=== PATIENT | female | born 1955 | race Caucasian/White ===

== ENCOUNTER 2018-06-15 12:22 | Day surgery (SDC) | payer BC ==
[~2018-06-15] VITALS: Ht 165.1 cm; Wt 93.9 kg
[~2018-06-15 12:22] MED LIST: ADVAIR 250-501 EACH INH; CIPRO500 MG PO; DULOXETINE HCL20 MG PO; FELODIPINE ER5 MG PO; GABAPENTIN300 MG PO; LEVAQUIN500 MG PO; LEVOTHYROXINE100 MCG PO; LEVOTHYROXINE112 MCG PO; LIOTHYRONINE SO5 MCG PO; LISINOPRIL-HCT1 EACH PO; LISINOPRIL20 MG PO; LOSARTAN-HCTZ1 EAC1 PO; METFORMIN HCL500 MG PO; NORCO 5-325 TA1 EACH PO; PERCOCET 7.5-31 EACH PO; SUDOGEST30 MG PO; SYNTHROID100 MCG PO; ZYRTEC10 MG PO
--- NOTE | 2018-06-15 13:44 | NUR ---
06/15/18 1344 Sheila Parker 1338 PT ARRIVED IN PACU SLEEPY WITH NO C/O'S. ABD SOFT AND PASSING FLATUS. REPOSITIONED TO BACK FOR PT COMFORT.
--- NOTE | 2018-06-16 15:31 | OR ---
[facility] [address] [place], [place] [address] Signed DATE OF OPERATION: 06/15/2018 SURGEON: Fantasma Bernardo MD PREOPERATIVE DIAGNOSIS: History of tubular adenoma at 20 cm. POSTOPERATIVE DIAGNOSIS: Small polyp at 20 cm, possible residual polyp or new polyp. PROCEDURE: Total colonoscopy to cecum with cold morcellation polypectomy x1. ANESTHESIA: Intravenous sedation, fentanyl 100 mcg and Versed 5 mg. INDICATION: This 63-year-old white woman is a patient of Dr. Perea and underwent colonoscopy by [facility] in 2015, at which time she was found to have a tubular adenoma at 20 cm and hyperplastic polyp at 30 cm. She is symptom free having no bleeding, diarrhea or constipation. Has no family history of colon cancer. She is admitted at this time to undergo colonoscopy for surveillance. She understands the risks of bleeding, infection, and perforation. FINDINGS: The prep was excellent. Complete colonoscopy was undertaken of the cecum. There was a small polyp at 20 cm, which was excised. It did not look worrisome in any way and is quite small overall. DESCRIPTION OF PROCEDURE: The patient was brought to the endoscopy suite and placed in lateral decubitus position, given intravenous sedation to the point of slurred speech and nystagmus. Digital rectal examination was normal. Olympus video colonoscope was passed in the rectum and manipulated throughout the colon ultimately intubating the cecum itself. The ileocecal valve and appendiceal orifice were normal. The scope was withdrawn from that point. Examination throughout showed no sign of abnormality until approximately 20 cm from the anal verge where a small polyp was noted. This may be hyperplastic. The possibility of a residual adenoma at that site is considered also. The lesion was excised with cold morcellation technique without problem. Further withdrawal of the scope showed no other abnormality. Retroflexed view was normal. Scope was removed. The patient was taken to Electronically Signed By: FANTASMA BERNARDO MD 06/16/18 1531 PATIENT NAME: BHARAT CALDWELL OPERATIVE REPORT DATE OF : 53 REPORT #: [id number] PHYSICIAN: FANTASMA BERNARDO MD PCP: MIGUEL A PEREA MD REPORT IS CONFIDENTIAL AND NOT TO BE RELEASED WITHOUT AUTHORIZATION [facility] [address] [place] [place] [address] Signed the recovery room in good condition. CONCLUDING DIAGNOSIS: Small polyp at 20 cm. PLAN: We will check pathology report. If an adenoma is noted, repeat colonoscopy in 5 years. If hyperplastic, recommend 10 years followup. She will return to the ongoing care of Dr. Perea otherwise. MD LD Wade/MODL /[id number] cc: Miguel A Perea MD Copies: MIGUEL A PEREA MD ~ Electronically Signed By: FANTASMA BERNARDO MD 06/16/18 1531 PATIENT NAME: BHARAT CALDWELL OPERATIVE REPORT DATE OF : 53 REPORT #: [id number] PHYSICIAN: FANTASMA BERNARDO MD PCP: MIGUEL A PEREA MD REPORT IS CONFIDENTIAL AND NOT TO BE RELEASED WITHOUT AUTHORIZATION
== END 2018-06-15 14:15 | disposition home or self-care (01) ==
LOC: DS 12:22 → OPS 12:22 → DS 13:00 → OPS 14:15
PROVIDERS: Surgery
PROC: 0DBE8ZZ Excision of Large Intestine, Via Natural or Artificial Opening Endoscopic (ICD-10-PCS; principal; 2018-06-15 13:00)
DX: Z12.11 Encounter for screening for malignant neoplasm of colon (principal); K63.5 Polyp of colon; I10 Essential (primary) hypertension; K21.9 Gastro-esophageal reflux disease without esophagitis; E03.9 Hypothyroidism, unspecified; G89.29 Other chronic pain; Z88.0 Allergy status to penicillin; Z79.899 Other long term (current) drug therapy; Z86.010 Personal history of colon polyps; Z87.01 Personal history of pneumonia (recurrent)
CPT/HCPCS: 99153; G0500; J2250; J3010; J7120

== ENCOUNTER 2018-06-27 15:42 | Emergency (ER) | payer BC ==
[~2018-06-27] VITALS: Ht 165.1 cm; Wt 93.9 kg
[2018-06-27] MEDS ORDERED: NORCO 5-325 TA1 EACH PO (18:10)
== END 2018-06-27 18:34 | disposition home or self-care (01) ==
LOC: ED 15:42
DX: M53.3 Sacrococcygeal disorders, not elsewhere classified (principal); Z88.0 Allergy status to penicillin; Z79.899 Other long term (current) drug therapy; Z79.84 Long term (current) use of oral hypoglycemic drugs
CPT/HCPCS: 96372; 99283-25; J1885; J2550

== ENCOUNTER 2024-02-23 11:31 | Inpatient (IN) | payer OTHER, MEDICARE ==
[~2024-02-23] VITALS: Ht 167.6 cm; Wt 104.3 kg
[2024-02-23] MEDS ORDERED: SODIUM CHLORIDE 0.9% 1,000 ML IV PRN (12:30)
[2024-02-23 12:52] LABS: BILIRUBIN, URINE NEGATIVE (negative); BLOOD/HGB, URINE NEGATIVE (Negative); KETONE, URINE NEGATIVE (Negative); LEUK ESTERASE, URINE NEGATIVE (negative); NITRITE, URINE NEGATIVE (negative)
[2024-02-23 12:53] LABS: BASOPHILS 0.7 % (0-2); EOSINOPHILS 1.2 % (0-6); HEMOGLOBIN 14.8 g/dL (12.0-18.0); LYMPHOCYTES 23.5 % (24-44); MCH 29.8 (27-36); MCHC 34.5 g/dl (30-36); MCV 86.4 fl (81-99); MONOCYTES 8.2 % (0-12); NEUTROPHILS 66.4 % (39-80); PLATELET COUNT 408 K/uL (140-440); RBC 4.97 M/ul (4.3-5.7); RDW 13.4 (10.5-15.0)
[2024-02-23 13:03] LABS: INR 0.93 (0.80-1.30); PROTIME 12.1 Sec (11.2-14.2)
[2024-02-23 13:11] LABS: BACTERIA, URINE NONE SEEN /hpf (negative); CASTS, URINE NONE SEEN \\lpf; COLLECTION TYPE, URINE CLEAN CATCH; CRYSTALS, URINE NONE SEEN (0-1+); EPITHELIAL CELLS, URINE 0 /lpf (0-1+); RED BLOOD CELLS, URINE 0-1 /hpf (0-5); WHITE BLOOD CELLS, URINE 0-1 /HPF (0-5)
[2024-02-23 13:12] LABS: REFLEX CULTURE, URINE No (No)
[2024-02-23 13:15] LABS: ALBUMIN 4.3 g/dL (3.4-5.0); ALBUMIN/GLOBULIN RATIO 1.13 (1.1-2.4); ANION GAP 15.4 (7-21); BILIRUBIN, TOTAL 0.7 ng/dL (0.2-1.0); BUN/CREATININE RATIO 14.28 (6.0-28.6); CALCIUM 9.9 mg/dL (8.5-10.1); CREATININE, SERUM 0.84 mg/dL (0.55-1.02); POTASSIUM 4.4 mmol/L (3.5-5.1); PROTEIN, TOTAL 8.1 g/dL (6.4-8.2)
[2024-02-23 13:29] LABS: INFLUENZA B NAA NEGATIVE (NEGATIVE); RESPIRATORY SYNCYTIAL VIR NAA NEGATIVE (NEGATIVE)
[2024-02-23] MEDS ORDERED: ondansetron HCL 4 MG/2 ML VIAL IV PRN (18:45)
[2024-02-23] MEDS ORDERED: DEXTROSE 5% - NACL 0.45% 1,000 ML IV SCH (18:45)
[2024-02-23 19:28] VITALS: BP 154/74
[2024-02-23 19:30] VITALS: BP 154/74
--- NOTE | 2024-02-23 19:30 | NUR ---
REPORT RECEIVED FROM JERAMIE PRIEST. pt ARRIVED FROM THE ER VIA STRETCHER. pt ABLE TO WALK TO THE BED. ASSESSMENT AND VITAL DIGNS DONE. pt DENIES ANY NEEDS AT THIS TIME. pt STATE SHE HAD CHRONIC NEUROPATHY IN HER FEET. NO NEW DEFICITS AT THIS TIME. CALL LIGHT WITHIN IN REACH. NO OTHER NEEDS AT THIS TIME. TELE #5 PLACED ON pt.
[2024-02-23] MEDS ORDERED: NORVASC10 MG PO (19:38)
[2024-02-23] MEDS ORDERED: COZAAR100 MG PO (19:40)
[2024-02-23] MEDS ORDERED: SPIRONOLACTONE25 MG PO (19:41)
--- NOTE | 2024-02-23 20:55 | NUR ---
CALL LIGHT ANSWERED. SBA. PATIENT WALKED TO THE BATHROOM. VOIDED 100ML YELLOW URINE. PATIENT APPEARS STEADY ON HER FEET. PATIENT IS BACK IN BED. PATIENT'S LEFT OVER FOOD IN A STYRO PLACED IN THE ZIPLOC WITH STICKER IS IN THE REFREGIRATOR. ICE WATER REFILLED. NO OTHER NEEDS AT THIS TIME.
[2024-02-23] MEDS ORDERED: APIXABAN 5 MG TAB PO SCH (21:00)
[2024-02-23] MEDS ORDERED: CLOPIDOGREL BISULFATE 75 MG TAB PO SCH (21:00)
[2024-02-23] MEDS ORDERED: ATORVASTATIN 40 MG TAB PO SCH (21:00)
[2024-02-23] MEDS ORDERED: ASPIRIN 81 MG CHEW PO SCH (21:00)
--- NOTE | 2024-02-23 21:54 | NUR ---
SCHEDULED MEDS PROVIDED. PT UP TO BR, SBA, BACK TO BED. TOLERATED WEEL WITH STEADY GAIT. PT STATES NO OTHER NEEDS AT THIS TIME. CALL LIGHT IN REACH.
--- NOTE | 2024-02-23 23:49 | NUR ---
PATIENT CALLED TO USE THE RESTROOM. SBA. PATIENT VOIDED 75ML YELLOW URINE. PATIENT IS BACK IN BED. NO OTHER NEEDS AT THIS TIME.
[2024-02-24 01:22] VITALS: BP 128/68
[2024-02-24 02:11] VITALS: BP 128/68
--- NOTE | 2024-02-24 02:18 | NUR ---
VINCENT, PER RN DIRECTIVE, TOLD PT THAT SHE CHOULD TAKE HERSELF TO THE BATHROOM. INTERNET SALES CONSULTANT DID SOME EDUCATION ON SAFETY AND ENCOURAGED PT TO CALL FOR HELP IF THE IV IS TANGLED OR HAD OTHER CONCERNS.
--- NOTE | 2024-02-24 04:20 | NUR ---
pt RESTING IN THE BED WITH EYES CLOSED. RR EVEN AND UNLABORED. CALL LIGHT WITHIN REACH.
[2024-02-24 05:11] VITALS: BP 132/77
[2024-02-24 05:13] VITALS: BP 132/77
[2024-02-24 05:35] LABS: BASOPHILS 0.6 % (0-2); EOSINOPHILS 3.2 % (0-6); HEMATOCRIT 39.8 % (35.0-50.0); HEMOGLOBIN 13.6 g/dL (12.0-18.0); LYMPHOCYTES 34.5 % (24-44); MCH 29.7 (27-36); MCHC 34.2 g/dl (30-36); MCV 86.7 fl (81-99); MONOCYTES 10.5 % (0-12); NEUTROPHILS 51.2 % (39-80); PLATELET COUNT 381 K/uL (140-440); RDW 13.2 (10.5-15.0)
[2024-02-24 05:45] LABS: BUN/CREATININE RATIO 10.84 (6.0-28.6); CALCIUM 9.2 mg/dL (8.5-10.1); CREATININE, SERUM 0.83 mg/dL (0.55-1.02)
--- NOTE | 2024-02-24 06:17 | NUR ---
pt RESTED THROUGH OUT THE NIGHT. NO NEW DEFICITS AND pt DENIES ANY ABNORMALITIES. ALERT AND ORIENTED X4. NO OTHER CONCERNS AT THIS TIME.
--- NOTE | 2024-02-24 07:20 | NUR ---
REPORT RECEIVED FROM ZAYDA CHRISTENSEN. PT OPENS EYES WHEN THIS RN ENTERS ROOM, CURRENTLY REPORTS NO NEEDS AT THIS TIME, CALL LIGHT IN REACH.
[2024-02-24] MEDS ORDERED: PREGABALIN25 MG PO (07:38)
--- NOTE | 2024-02-24 07:58 | NUR ---
INITIAL ASSESSMENT AND MEDICATIONS COMPLETE PER JUL. PT AWAKE AND PLEASANTLY CONVERSANT IN BED. PT REPORTS CHRONIC N/T IN BLE R/T PRIOR PODIATRY VISIT WITH INJECTIONS CAUSING NERVE INJURY. PT REPORTS NO NEW OR DIFFERING N/T OTHER THAN HER CHRONIC. DR BALDWIN IN TO ASSESS PT. PT REPORTS L SHOULDER PAIN, 09/11, HEAT PACK APPLIED, DECLINES PHARMALOGICAL INTERVENTION AT THIS TIME. PT AMBULATES WITH STEADY GAIT TO RESTROOM UNASSISTED, AMBULATES AND RETURNS TO BED UNASSISTED. NO OTHER NEEDS AT THIS TIME, CALL LIGHT IN REACH.
[2024-02-24] MEDS ORDERED: ACETAMINOPHEN 325 MG TAB PO PRN (08:00)
[2024-02-24] MEDS ORDERED: LIOTHYRONINE SODIUM 5 MCG TAB PO SCH (09:00)
[2024-02-24] MEDS ORDERED: LEVOTHYROXINE SODIUM 100 MCG TAB PO SCH (09:00)
--- NOTE | 2024-02-24 09:00 | NUR ---
Spoke with Katherine and her daughter. Pt states she lives in a house with 3 steps. She does not have any concerns for getting in or out of her home. She denies any deficits on r or L side today. Pt uses a CPAP at home but 0 other DME. 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 Plans to dc to home when cleared medically. Daughter was concerned pt may need a walker, but pt again stating she does not have weakness. Let them know she will be evaluated by PT and we will go with their recommendations.
[2024-02-24 09:02] VITALS: BP 143/79
--- NOTE | 2024-02-24 09:04 | NUR ---
IN TO ROUND ON PT. PT REPORTS HEAT PACK TO L SHOULDER HELPFUL BUT SHE WOULD LIKE TO TRY SOME MEDICATION NOW. PRN PAIN MEDICATION ADMINISTERED PER ORDER, FRESH HEAT PACK PROVIDED. PTs DAUGHTER ARRIVES, IMMEDIATELY FOLLOWED BY IMAGING TO PERFORM PT ECHO. NO OTHER NEEDS AT THIS TIME, CALL LIGHT IN REACH.
--- NOTE | 2024-02-24 09:24 | NUR ---
UR CLINICAL REVIEW: [facility] [place] [place] FOR ISCHEMIC STROKE GUIDELINE [facility] 02/23/24 @ 1833 ORDER MATCHES REG AUTH PENDING, WILL SEND CLINICALS [facility]IA [employer] TODAY. PLAN TO DC TO HOME WHEN STABLE. 02/26/24
--- NOTE | 2024-02-24 09:42 | NUR ---
MED REC COMPLETE
--- NOTE | 2024-02-24 09:54 | NUR ---
TONNAGE COMPILATION CLERK CHARTED PATIENTS VITALS AND I&O'S. PATIENT IN BED AT THIS TIME. CALL LIGHT WITHIN REACH, NO FURTHER NEEDS AT THIS TIME.
--- NOTE | 2024-02-24 10:24 | NUR ---
VISITED DURING SPIRITUAL CARE ROUNDS. PT SUPPORTED BY DAUGHTER IN ROOM. BOTH PT AND DAUGTHER EXPRESSED HOPE, CONFIDENCE IN RECOVERY. HEALTH CONCIERGE PROVIDED SUPPORTED PRESENCE, HOSPITALITY, PRAYER, FACILITATED INTERACTION WITH THERAPY ANIMAL. PT AND DAUGHTER EXPRESSED GRATITUDE.
[2024-02-24] MEDS ORDERED: PHARMACY RENAL DOSE ADJUSTMENT 1 DOSE MISC PO SCH (12:00)
--- NOTE | 2024-02-24 12:02 | NUR ---
IN TO ROUND ON PT, PT RESTING ON L SIDE IN BED, EYES CLOSED, RR EVEN AND UNLABORED. CALL LIGHT IN REACH.
--- NOTE | 2024-02-24 13:22 | NUR ---
Spoke with Dr. Saldivar. He plans on pt discharging today. She would like to use PT at [facility] as she is already seeing them for her shoulder. I called and spoke with the PT department. They request I send orders and chart to their PT department with referral for reevaluation as pt is scheduled for her shoulder tomorrow. Dr. Saldivar updated.
[2024-02-24] MEDS ORDERED: ASPIRIN81 MG PO (13:32)
[2024-02-24] MEDS ORDERED: LIPITOR40 MG PO (13:33)
[2024-02-24] MEDS ORDERED: CLOPIDOGREL75 MG PO (13:33)
[2024-02-24 13:43] VITALS: BP 153/80
--- NOTE | 2024-02-24 14:40 | NUR ---
PT DISCHARGE EDUCATION DISCUSSED, QUESTIONS ANSWERED AND PT VERBALIZES UNDERSTANDING. IV REMOVED WNL, GAUZE AND COBAN APPLIED AND PT EDUCATED ON REMOVAL. PT ESCORTED TO FRONT OF HOSPITAL IN W/C, AMBULATES TO DAUGHTER'S CAR AND MUNIR HERSELF IN. DAUGHTER DRIVES AWAY.
--- NOTE | 2024-02-24 15:28 | NUR ---
Face sheet, H&P, Dc summary, Pt riri faxed to José Manuel at [facility] PT dept. They will see this pt tomorrow at her scheduled appt.
--- NOTE | 2024-02-24 20:28 | EKG ---
[facility] [address] [place], [place] [address] Signed Normal sinus rhythm Normal ECG No previous ECGs available Confirmed by Salome Saldivar MD ([id number]) on 02/24/2024 8:28:16 PM Electronically Signed By: SALOME SALDIVAR MD 02/24/242027 PATIENT NAME: BHARAT CALDWELL Electrocardiogram DATE OF : 53 PHYSICIAN: SALOME SALDIVAR MD REPORT #: [id number] REPORT IS CONFIDENTIAL AND NOT TO BE RELEASED WITHOUT AUTHORIZATION
== END 2024-02-24 14:40 | disposition home or self-care (01) | DRG 66 ==
LOC: ED 11:31 → MS 18:44
PROVIDERS: Emergency Medicine; ADMIT Student in an Organized Health Care Education/Training Program; ATTEND Student in an Organized Health Care Education/Training Program
DX: I63.9 Cerebral infarction, unspecified (principal); I10 Essential (primary) hypertension; R47.81 Slurred speech; R27.0 Ataxia, unspecified; E03.9 Hypothyroidism, unspecified; E11.9 Type 2 diabetes mellitus without complications; E78.5 Hyperlipidemia, unspecified; Z88.0 Allergy status to penicillin; Z79.890 Hormone replacement therapy; Z79.891 Long term (current) use of opiate analgesic; R29.700 NIHSS score 0
CPT/HCPCS: 36415; 70450; 70496; 70498; 70553; 71045; 73030; 80048; 80053; 81001; 83735; 83880; 84484; 85025; 85610; 85730; 87502; 93005; 93010; 93306; 97161; A9270; A9579; J7030; J7042; Q9967; U0002

== ENCOUNTER 2025-02-06 08:09 | Emergency (ER) | payer BC, MEDICARE, OTHER ==
[~2025-02-06] VITALS: Ht 167.6 cm; Wt 92.0 kg
--- OUTSIDE RECORDS SUMMARY | ~2025-02-06 | XMS | Continuity of Care Document ---
Demographics + + + | Address | [address] | | | [place] [address] | + + + | Preferred Language | Unknown | + + + | Marital Status | | + + + | Congregational Affiliation | Unknown | + + + | Race | White | + + + | Ethnic Group | Not or | + + + Author + + + | Author | [place] | + + + | Organization | [facility] | + + + | Address | [address] | | | [place] [address] | + + + | Phone | | + + + Care Team Providers + + + + | Care Physical Trainer Name | Role | Phone | + + + + Unavailable | Unavailable | + + + + Allergies No information. Encounters No information. Functional Status No information. Immunizations No information. Medications + + + + | date | description | facility | + + + + | (no date) | O[facility]CODONE | [facility] | | | HCL/ACETAMINOPHEN | [facility] | + + + + | (no date) | ESTRADIOL | [facility] | | | | [facility] | + + + + | (no date) | | [facility] | | | LISINOPRIL/HYDROCHLOROTHIAZ | [facility] | | | [facility] | | + + + + | (no date) | TEMAZEPAM | [facility] | | | | [facility] | + + + + | (no date) | CALCIUM GLUCONATE | [facility] | | | | [facility] | + + + + | (no date) | LEVOFLOXACIN | [facility] | | | | [facility] | + + + + | (no date) | AMLODIPINE BESYLATE | [facility] | | | | [facility] | + + + + | (no date) | SPIRONOLACTONE | [facility] | | | | [facility] | + + + + | (no date) | VENLAFAXINE HCL | [facility] | | | | [facility] | + + + + | (no date) | LISINOPRIL | [facility] | | | | [facility] | + + + + | (no date) | OXYBUTYNIN CHLORIDE | [facility] | | | | [facility] | + + + + | (no date) | LEVOTHYROXINE SODIUM | [facility] | | | | [facility] | + + + + | (no date) | LIOTHYRONINE SODIUM | [facility] | | | | [facility] | + + + + | (no date) | LEVOTHYROXINE SODIUM | [facility] | | | | [facility] | + + + + | (no date) | LEVOTHYROXINE SODIUM | [facility] | | | | [facility] | + + + + | (no date) | LOSARTAN POTASSIUM | [facility] | | | | [facility] | + + + + | (no date) | Denosumab | [facility] | | | | [facility] | + + + + Problems No information. Procedures No information. Results/Labs No information. Social History +--------+ + + | date | description | facility | +--------+ + + Vital Signs No information."
[~2025-02-06 08:09] MED LIST changes: +ASPIRIN81 MG PO; +CALCIUM GLUCONA60 M1 PO; +CLOPIDOGREL75 MG PO; +COZAAR100 MG PO; +ESTRADIOL0.5 MG PO; +LIPITOR40 MG PO; +NORVASC10 MG PO; +OXYBUTYNIN CHLOR5 MG PO; +PREGABALIN25 MG PO; +PROLIA60 MG/1 ML SUB-Q; +SPIRONOLACTONE25 MG PO; +TEMAZEPAM15 MG PO; +VENLAFAXINE H37.5 MG PO
[2025-02-06] MEDS ORDERED: EZETIMIBE10 MG PO (08:26)
[2025-02-06 09:08] LABS: CORONAVIRUS COVID-19 AG NEGATIVE (NEGATIVE)
[2025-02-06] MEDS ORDERED: CEFDINIR300 MG PO (09:28)
[2025-02-06] MEDS ORDERED: DOXYCYCLINE HY100 MG PO (09:28)
[2025-02-06 09:34] VITALS: BP 114/67
== END 2025-02-06 09:35 | disposition home or self-care (01) ==
LOC: ED 08:09
PROVIDERS: Emergency Medicine
DX: J18.9 Pneumonia, unspecified organism (principal); I10 Essential (primary) hypertension; E03.9 Hypothyroidism, unspecified; Z86.73 Personal history of transient ischemic attack (TIA), and cerebral infarction without residual deficits; Z88.1 Allergy status to other antibiotic agents; Z88.0 Allergy status to penicillin; Z88.2 Allergy status to sulfonamides; Z79.82 Long term (current) use of aspirin; Z79.02 Long term (current) use of antithrombotics/antiplatelets; Z79.890 Hormone replacement therapy; Z79.899 Other long term (current) drug therapy
CPT/HCPCS: 36415; 71045; 99283-25